=== PATIENT | female | born 1950 | race African-American/Black ===

== ENCOUNTER 2018-11-15 23:11 | Emergency (ER) | payer OTHER ==
[~2018-11-15] VITALS: Ht 170.2 cm; Wt 87.0 kg
[2018-11-16] MEDS ORDERED: NAPROXEN 250MG TABLET PO ONE (01:45)
[2018-11-16] MEDS ORDERED: ACETAMINOPHEN 500MG TABLET PO ONE (01:45)
[2018-11-16 02:45] VITALS: BP 168/79
== END 2018-11-16 02:47 | disposition home or self-care (01) ==
LOC: ER 23:52
DX: M25.551 Pain in right hip (principal); M71.21 Synovial cyst of popliteal space [Baker], right knee; I10 Essential (primary) hypertension; M19.90 Unspecified osteoarthritis, unspecified site; Z88.8 Allergy status to other drugs, medicaments and biological substances; Z91.040 Latex allergy status; Y08.89XA Assault by other specified means, initial encounter; Y93.89 Activity, other specified; Y92.89 Other specified places as the place of occurrence of the external cause; Y99.8 Other external cause status
CPT/HCPCS: 99283